=== PATIENT | female | born 1990 | race American Indian/Alaskan Native ===

== ENCOUNTER 2016-09-02 22:27 | Emergency (ER) | payer SELFPAY ==
[2016-09-02 22:36] VITALS: BP 141/89
== END 2016-09-03 00:40 | disposition left against medical advice (07) ==
LOC: ED 22:27
DX: R10.30 Lower abdominal pain, unspecified (principal); Z53.21 Procedure and treatment not carried out due to patient leaving prior to being seen by health care provider